=== PATIENT | male | born 1985 | race Caucasian/White ===

== ENCOUNTER 2016-07-17 08:40 | Emergency (ER) | payer OTHER ==
[2016-07-17] MEDS ORDERED: PERCOCET 5MG/325MG TAB As Ordered ONE (08:55)
[2016-07-17] MEDS ORDERED: CEPHALEXIN 250 MG CAP As Ordered ONE (09:44)
--- NOTE | 2016-07-17 09:57 | EDDOCDS ---
Nurse's Notes [facility] Name: Malcom Barclay Age: 31 yrs Sex: Male : 1985 Arrival Date: 07/17/2016 Time: 08:40 Bed I2 / M2 Private MD: Diagnosis: Displaced fracture of distal phalanx of right ring finger-open tuft fx. Presentation: 07/17 08:46 Presenting complaint: Patient states: Crushing injury to tip of right ring finger after dwg dropping 85lb weight on it. Adult Sepsis Screening: The patient does not have new or worsening altered mentation. Patient's respiratory rate is less than 22. Systolic blood pressure is greater than 100. Patient has a qSOFA score of 0- Negative Sepsis Screen. Suicide/Homicide risk assessment- the patient denies having any suicidal and/or homicidal ideations and does not present with any other emotional, behavioral or mental health complaints. 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 Transition of care: patient was not received from another setting of care. 08:46 Acuity: ARJUN Level 4 dwg 08:46 Method Of Arrival: Walkin/Carried/Asstd dwg Triage Assessment: 08:48 General: Appears in no apparent distress. Pain: Pain currently is 6 out of 10 on a pain dwg scale. Pt Declines HIV testing. Historical: - Allergies: no known allergies; - Home Meds: 1. none - PMHx: none; - PSHx: Inguinal hernia repair as a child; - Social history: Smoking status: Patient states was never smoker of tobacco. No barriers to communication noted, The patient speaks fluent Bahamian. - Family history: Not pertinent. - : The pt / caregiver states he / she is not on anticoagulants. Home medication list is obtained from the patient. - Exposure Risk Screening:: None identified. Screenin:58 Screening information is obtained from the patient. Fall risk: No risks identified. pml Assistance ADL's: requires no assistance with activities of daily living. Abuse/DV Screen: The patient / caregiver reports he/she is: not in a situation that causes fear, pain or injury. Nutritional screening: No deficits noted. Advance Directives: Currently, there is no health care proxy. home support is adequate. Assessment: 08:58 General: Appears in no apparent distress, Behavior is appropriate for age, cooperative. pml Pain: Location: dorsal aspect of distal phalanx of right ring finger Pain currently is 7 out of 10 on a pain scale. Neurological: Level of Consciousness is awake, alert, Oriented to person, place, time. Cardiovascular: Capillary refill < 3 seconds. Respiratory: Airway is patent Respiratory effort is even, unlabored. Derm: Skin is pink, warm & dry. Musculoskeletal: Circulation, motion, and sensation intact Capillary refill < 3 seconds Swelling present in dorsal aspect of distal phalanx of right ring finger. 09:55 General: Appears in no apparent distress, Behavior is appropriate for age, cooperative. pml Pain: Location: dorsal aspect of distal phalanx of right ring finger Pain currently is 5 out of 10 on a pain scale. Neurological: Level of Consciousness is awake, alert, Oriented to person, place, time. Cardiovascular: Capillary refill < 3 seconds. Respiratory: Airway is patent Respiratory effort is even, unlabored. Derm: Skin is pink, warm & dry. Musculoskeletal: Circulation, motion, and sensation intact Capillary refill < 3 seconds. Injury Description: Abrasion sustained to dorsal aspect of distal phalanx of right ring finger. Vital Signs: 08:48 BP 112 / 63; Pulse 70; Resp 16; Temp 97.0(O); Pulse Ox 97% on R/A; Weight 104.33 kg; g Height 72 in. (182.88 cm); Pain 6/10; 09:47 BP 122 / 75; Pulse 72; Resp 16; Temp 98.1; Pulse Ox 96% on R/A; Pain 6/10; nb2 09:55 Pain 5/10; pml 08:48 Body Mass Index 31.19 (104.33 kg, 182.88 cm) [facility] Vitals: 08:48 Log In Time: July 17, 2016 at 08:37. [facility] ED Course: 08:41 Patient visited by Todd Multani Reg. lg 08:41 Patient moved to Waiting lg 08:48 Triage Initiated [facility] 08:50 Patient moved to Triage 1 [facility] 08:51 Geovany Mendoza PA-C [facility] cc10 08:51 Abdiaziz Sherman MD is Attending Physician. cc10 08:51 Patient visited by Geovany Mendoza PA-C. cc10 08:51 Patient visited by Geovany Mendoza PA-C. cc10 08:53 Patient moved to I2 / M2 cc10 08:58 The patient / caregiver is instructed regarding the plan of care and ED course. Patient pml has correct armband on for positive identification. Bed in low position. Call light in reach. 08:58 No IV's were initiated during this patient's visit. pml 08:59 Patient visited by Ericka Flores RN. pml 09:07 [facility] Payment Agreement was scanned into [employer] and attached to record. mm15 09:38 Patient visited by Maura Jose. nb2 09:44 [facility]. cc10 09:48 Patient visited by Maura Jose. nb2 09:52 Patient visited by Ericka Flores RN. pml 09:52 Wound care to abrasion, located on dorsal aspect of distal phalanx of right ring finger pml was cleaned with soap and water, dressed with 4X4s, Kerlix, Patient tolerated well. 09:55 No procedures done that require assistance. pml Administered Medications: 08:58 Drug: oxyCODONE-acetaminophen 1 tabs [oxycodone-acetaminophen 5 mg-325 mg tablet (1 pml tabs)] Route: PO; 09:55 Follow up: Pain 5/10 Adult; Response: Confirmed pt not driving.; Pain is decreased pml 09:52 Drug: Cephalexin 500 mg [cephalexin 250 mg capsule (2 caps)] Route: PO; pml Order Results: There are currently no results for this order. Outcome: 09:44 Discharge ordered by Provider. cc10 09:55 Discharge Assessment: Patient awake, alert and oriented x 3. No cognitive and/or pml functional deficits noted. Patient verbalized understanding of disposition instructions. patient administered narcotics - yes. Pt provided with safe discharge. The following High Risk Discharge criteria are identified: None. Discharged to home ambulatory, with friend. Condition: good Condition: stable. Discharge instructions given to patient, Instructed on discharge instructions, follow up and referral plans. medication usage, wound care, Demonstrated understanding of instructions, medications, Pt was receptive of discharge instructions/ teaching. Prescriptions given X 2. No special radiology studies were completed. Property sent home with patient. 09:56 Patient left the ED. pml Signatures: Nura Holliday RN RN Todd Welsh, Reg Reg lg Ericka FloresRN RN pml Guillermo Weaver mm15 Geovany Mendoza, PA-C PA-C cc10 Maura Jose nb2 MTDD
--- NOTE | 2016-07-17 09:57 | EDDOCDS ---
Physician Documentation [facility] Name: Malcom Barclay Age: 31 yrs Sex: Male : 1985 Arrival Date: 07/17/2016 Time: 08:40 Bed I2 / M2 Private MD: Disposition: 07/17/16 09:44 Discharged to Home/Self Care. Impression: Displaced fracture of distal phalanx of right ring finger - open tuft fx.. - Condition is Stable. - Discharge Instructions: Crush Injury, Fingers or Toes. - Prescriptions for Keflex 500 mg Oral Capsule - take 1 capsule by ORAL route every 12 hours for 7 days; 14 capsule. Hydrocodone- Acetaminophen 5-325 mg Oral Tablet - take 1 tablet by ORAL route every 6 hours As needed MDD: 4 tabs; 16 tablet. - Medication Reconciliation form. - Follow up: Ganesh Reyna [facility]; When: 2 - 3 days; Reason: Wound/Symptom Recheck, Recheck today's complaints, Worsening of conditions, Continuance of care, referral to the ortho. MD. - Problem is new. - Symptoms have improved. Historical: - Allergies: no known allergies; - Home Meds: 1. none - PMHx: none; - PSHx: Inguinal hernia repair as a child; - Social history: Smoking status: Patient states was never smoker of tobacco. No barriers to communication noted, The patient speaks fluent Japanese. - Family history: Not pertinent. - : The pt / caregiver states he / she is not on anticoagulants. Home medication list is obtained from the patient. - Exposure Risk Screening:: None identified. Vital Signs: 07/17 08:48 BP 112 / 63; Pulse 70; Resp 16; Temp 97.0(O); Pulse Ox 97% on R/A; Weight 104.33 kg / dwg 230.01 lbs; Height 72 in. (182.88 cm); Pain 6/10; 09:47 BP 122 / 75; Pulse 72; Resp 16; Temp 98.1; Pulse Ox 96% on R/A; Pain 6/10; nb2 09:55 Pain 5/10; pml 08:48 Body Mass Index 31.19 (104.33 kg, 182.88 cm) dwg MDM: 08:53 oxyCODONE-acetaminophen 5 mg-325 mg 1 tabs PO once ordered. cc10 08:54 Fingers: ring Ordered. EDMS 09:01 Financial registration complete. mm15 09:07 [facility] Payment Agreement was scanned into [employer] and attached to record. mm15 09:43 Wound Care ordered. cc10 09:43 Splint ordered. cc10 09:43 Cephalexin 500 mg PO once ordered. cc10 Administered Medications: 08:58 Drug: oxyCODONE-acetaminophen 1 tabs [oxycodone-acetaminophen 5 mg-325 mg tablet (1 pml tabs)] Route: PO; 09:55 Follow up: Pain 09/30 Adult; Response: Confirmed pt not driving.; Pain is decreased pml 09:52 Drug: Cephalexin 500 mg [cephalexin 250 mg capsule (2 caps)] Route: PO; pml Signatures: Dispatcher [employer] EDNura Gil RN RN dwg Quay, Paulina, RN RN pml Guillermo Weaver mm15 Geovany Mendoza PA-C PABarbi cc10 The chart was reviewed and I authenticate all verbal orders and agree with the evaluation and treatment provided.Attachments: 09:07 [facility] Payment Agreement mm15 MTDD
--- NOTE | 2016-07-17 10:03 | REP ---
RIGHT FOURTH FINGER SERIES: 07/17/2016. Clinical history: Trauma. No prior study. Findings: There is a fracture through the distal tuft of the distal phalanx with soft tissue laceration at the end of the nail bed distally in that finger. I do not see radiopaque foreign body. There are no other fractures. The IP joints of the phalanges and MCP joint intact. Impression: 1. Avulsion fracture distal tuft distal phalanx of the fourth digit without other phalangeal fracture or joint abnormality. No foreign body. Signed by Lenin Kulkarni MD 07/17/2016 04:40 P
--- NOTE | 2016-07-19 10:57 | EDDOCDS ---
Nurse's Notes [facility] Name: Malcom Barclay Age: 31 yrs Sex: Male : 1985 Arrival Date: 07/17/2016 Time: 08:40 Bed I2 / M2 Private MD: Diagnosis: Displaced fracture of distal phalanx of right ring finger-open tuft fx. Presentation: 07/17 08:46 Presenting complaint: Patient states: Crushing injury to tip of right ring finger after dwg dropping 85lb weight on it. Adult Sepsis Screening: The patient does not have new or worsening altered mentation. Patient's respiratory rate is less than 22. Systolic blood pressure is greater than 100. Patient has a qSOFA score of 0- Negative Sepsis Screen. Suicide/Homicide risk assessment- the patient denies having any suicidal and/or homicidal ideations and does not present with any other emotional, behavioral or mental health complaints. 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 Transition of care: patient was not received from another setting of care. 08:46 Acuity: ARJUN Level 4 dwg 08:46 Method Of Arrival: Walkin/Carried/Asstd dwg Triage Assessment: 08:48 General: Appears in no apparent distress. Pain: Pain currently is 6 out of 10 on a pain dwg scale. Pt Declines HIV testing. Historical: - Allergies: no known allergies; - Home Meds: 1. none - PMHx: none; - PSHx: Inguinal hernia repair as a child; - Social history: Smoking status: Patient states was never smoker of tobacco. No barriers to communication noted, The patient speaks fluent Moldovan. - Family history: Not pertinent. - : The pt / caregiver states he / she is not on anticoagulants. Home medication list is obtained from the patient. - Exposure Risk Screening:: None identified. Screenin:58 Screening information is obtained from the patient. Fall risk: No risks identified. pml Assistance ADL's: requires no assistance with activities of daily living. Abuse/DV Screen: The patient / caregiver reports he/she is: not in a situation that causes fear, pain or injury. Nutritional screening: No deficits noted. Advance Directives: Currently, there is no health care proxy. home support is adequate. Assessment: 08:58 General: Appears in no apparent distress, Behavior is appropriate for age, cooperative. pml Pain: Location: dorsal aspect of distal phalanx of right ring finger Pain currently is 7 out of 10 on a pain scale. Neurological: Level of Consciousness is awake, alert, Oriented to person, place, time. Cardiovascular: Capillary refill < 3 seconds. Respiratory: Airway is patent Respiratory effort is even, unlabored. Derm: Skin is pink, warm & dry. Musculoskeletal: Circulation, motion, and sensation intact Capillary refill < 3 seconds Swelling present in dorsal aspect of distal phalanx of right ring finger. 09:55 General: Appears in no apparent distress, Behavior is appropriate for age, cooperative. pml Pain: Location: dorsal aspect of distal phalanx of right ring finger Pain currently is 5 out of 10 on a pain scale. Neurological: Level of Consciousness is awake, alert, Oriented to person, place, time. Cardiovascular: Capillary refill < 3 seconds. Respiratory: Airway is patent Respiratory effort is even, unlabored. Derm: Skin is pink, warm & dry. Musculoskeletal: Circulation, motion, and sensation intact Capillary refill < 3 seconds. Injury Description: Abrasion sustained to dorsal aspect of distal phalanx of right ring finger. Vital Signs: 08:48 BP 112 / 63; Pulse 70; Resp 16; Temp 97.0(O); Pulse Ox 97% on R/A; Weight 104.33 kg; g Height 72 in. (182.88 cm); Pain 6/10; 09:47 BP 122 / 75; Pulse 72; Resp 16; Temp 98.1; Pulse Ox 96% on R/A; Pain 6/10; nb2 09:55 Pain 5/10; pml 08:48 Body Mass Index 31.19 (104.33 kg, 182.88 cm) [facility] Vitals: 08:48 Log In Time: July 17, 2016 at 08:37. [facility] ED Course: 08:41 Patient visited by Todd Multani Reg. lg 08:41 Patient moved to Waiting lg 08:48 Triage Initiated [facility] 08:50 Patient moved to Triage 1 [facility] 08:51 Geov[facility]endoza [facility]-C [facility] cc[facility] 08:51 Abdiaziz Sherman MD is Attending Physician. cc10 08:51 Patient visited by Geovany Mendoza PA-C. cc10 08:51 Patient visited by Geovany Mendoza PA-C. cc10 08:53 Patient moved to I2 / M2 cc10 08:58 The patient / caregiver is instructed regarding the plan of care and ED course. Patient pml has correct armband on for positive identification. Bed in low position. Call light in reach. 08:58 No IV's were initiated during this patient's visit. pml 08:59 Patient visited by Ericka Flores,ASIM. pml 09:07 [facility] Payment Agreement was scanned into [employer] and attached to record. mm15 09:38 Patient visited by Maura Jose. nb2 09:44 [facility]. cc10 09:48 Patient visited by Maura Jose. nb2 09:52 Patient visited by Ericka Flores,ASIM. pml 09:52 Wound care to abrasion, located on dorsal aspect of distal phalanx of right ring finger pml was cleaned with soap and water, dressed with 4X4s, Kerlix, Patient tolerated well. 09:55 No procedures done that require assistance. pml 10:25 Fingers: ring Returned. EDMS 18:24 T-Sheet-- Draft Copy was scanned into [employer] and attached to record. klr Administered Medications: 08:58 Drug: oxyCODONE-acetaminophen 1 tabs [oxycodone-acetaminophen 5 mg-325 mg tablet (1 pml tabs)] Route: PO; 09:55 Follow up: Pain 5/10 Adult; Response: Confirmed pt not driving.; Pain is decreased pml 09:52 Drug: Cephalexin 500 mg [cephalexin 250 mg capsule (2 caps)] Route: PO; pml Order Results: Radiology Order: Fingers: ring Test: Fingers: ring REASON FOR EXAMINATION: Trauma; RIGHT FOURTH FINGER SERIES: 07/17/2016.; ; Clinical history: Trauma.; ; No prior study.; ; Findings: There is a fracture through the distal tuft of the distal phalanx with; soft tissue laceration at the end of the nail bed distally in that finger. I do; not see radiopaque foreign body. There are no other fractures. The IP joints of; the phalanges and MCP joint intact.; ; Impression:; ; 1. Avulsion fracture distal tuft distal phalanx of the fourth digit without; other phalangeal fracture or joint abnormality. No foreign body.; ; ; ; ; Signed by; Lenin Kulkarni MD 07/17/2016 04:40 P; Outcome: 09:44 Discharge ordered by Provider. cc10 09:55 Discharge Assessment: Patient awake, alert and oriented x 3. No cognitive and/or pml functional deficits noted. Patient verbalized understanding of disposition instructions. patient administered narcotics - yes. Pt provided with safe discharge. The following High Risk Discharge criteria are identified: None. Discharged to home ambulatory, with friend. Condition: good Condition: stable. Discharge instructions given to patient, Instructed on discharge instructions, follow up and referral plans. medication usage, wound care, Demonstrated understanding of instructions, medications, Pt was receptive of discharge instructions/ teaching. Prescriptions given X 2. No special radiology studies were completed. Property sent home with patient. 09:56 Patient left the ED. pml Signatures: Dispatcher [employer] EDNura Gil, Todd Love RN, [place] Reg lg Ericka Flores RN RN pml McGrath, Marlynn mm15 Geovany Mendoza PA-C PA-C cc10 Jessica Meyer Nicole nb2 Chart Complete NICOLE
--- NOTE | 2016-07-19 10:57 | EDDOCDS ---
Physician Documentation [facility] Name: Malcom Barclay Age: 31 yrs Sex: Male : 1985 Arrival Date: 07/17/2016 Time: 08:40 Bed I2 / M2 Private MD: Disposition: 07/17/16 09:44 Discharged to Home/Self Care. Impression: Displaced fracture of distal phalanx of right ring finger - open tuft fx.. - Condition is Stable. - Discharge Instructions: Crush Injury, Fingers or Toes. - Prescriptions for Keflex 500 mg Oral Capsule - take 1 capsule by ORAL route every 12 hours for 7 days; 14 capsule. Hydrocodone- Acetaminophen 5-325 mg Oral Tablet - take 1 tablet by ORAL route every 6 hours As needed MDD: 4 tabs; 16 tablet. - Medication Reconciliation form. - Follow up: [facility] Reyna [facility]; When: 2 - 3 days; Reason: Wound/Symptom Recheck, Recheck today's complaints, Worsening of conditions, Continuance of care, referral to the ortho. MD. - Problem is new. - Symptoms have improved. Historical: - Allergies: no known allergies; - Home Meds: 1. none - PMHx: none; - PSHx: Inguinal hernia repair as a child; - Social history: Smoking status: Patient states was never smoker of tobacco. No barriers to communication noted, The patient speaks fluent Montenegrin. - Family history: Not pertinent. - : The pt / caregiver states he / she is not on anticoagulants. Home medication list is obtained from the patient. - Exposure Risk Screening:: None identified. Vital Signs: 07/17 08:48 BP 112 / 63; Pulse 70; Resp 16; Temp 97.0(O); Pulse Ox 97% on R/A; Weight 104.33 kg / dwg 230.01 lbs; Height 72 in. (182.88 cm); Pain 6/10; 09:47 BP 122 / 75; Pulse 72; Resp 16; Temp 98.1; Pulse Ox 96% on R/A; Pain 6/10; nb2 09:55 Pain 5/10; pml 08:48 Body Mass Index 31.19 (104.33 kg, 182.88 cm) dwg MDM: 08:53 oxyCODONE-acetaminophen 5 mg-325 mg 1 tabs PO once ordered. cc10 08:54 Fingers: ring Ordered. EDMS 09:01 Financial registration complete. mm15 09:07 [facility] Payment Agreement was scanned into [employer] and attached to record. mm15 09:43 Wound Care ordered. cc10 09:43 Splint ordered. cc10 09:43 Cephalexin 500 mg PO once ordered. cc10 18:24 T-Sheet-- Draft Copy was scanned into [employer] and attached to record. klr Administered Medications: 08:58 Drug: oxyCODONE-acetaminophen 1 tabs [oxycodone-acetaminophen 5 mg-325 mg tablet (1 pml tabs)] Route: PO; 09:55 Follow up: Pain 09/30 Adult; Response: Confirmed pt not driving.; Pain is decreased pml 09:52 Drug: Cephalexin 500 mg [cephalexin 250 mg capsule (2 caps)] Route: PO; pml Signatures: Dispatcher [employer] EDNura Gil RN RN Ericka Caban RN RN pml Guillermo Weaver mm15 Geovany Mendoza PA-C PABarbi cc10 Jessica Meyer klr The chart was reviewed and I authenticate all verbal orders and agree with the evaluation and treatment provided.Attachments: :07 [facility] Payment Agreement mm15 18:24 T-Sheet-- Draft Copy klr Chart Complete MTDD
--- NOTE | 2016-07-19 10:57 | EDDOCDS ---
Physician Documentation [facility] Name: Malcom Barclay Age: 31 yrs Sex: Male : 1985 Arrival Date: 07/17/2016 Time: 08:40 Bed I2 / M2 Private MD: Disposition: 07/17/16 09:44 Discharged to Home/Self Care. Impression: Displaced fracture of distal phalanx of right ring finger - open tuft fx.. - Condition is Stable. - Discharge Instructions: Crush Injury, Fingers or Toes. - Prescriptions for Keflex 500 mg Oral Capsule - take 1 capsule by ORAL route every 12 hours for 7 days; 14 capsule. Hydrocodone- Acetaminophen 5-325 mg Oral Tablet - take 1 tablet by ORAL route every 6 hours As needed MDD: 4 tabs; 16 tablet. - Medication Reconciliation form. - Follow up: Ganesh Reyna [facility]; When: 2 - 3 days; Reason: Wound/Symptom Recheck, Recheck today's complaints, Worsening of conditions, Continuance of care, referral to the ortho. MD. - Problem is new. - Symptoms have improved. Historical: - Allergies: no known allergies; - Home Meds: 1. none - PMHx: none; - PSHx: Inguinal hernia repair as a child; - Social history: Smoking status: Patient states was never smoker of tobacco. No barriers to communication noted, The patient speaks fluent Barbadian. - Family history: Not pertinent. - : The pt / caregiver states he / she is not on anticoagulants. Home medication list is obtained from the patient. - Exposure Risk Screening:: None identified. Vital Signs: 07/17 08:48 BP 112 / 63; Pulse 70; Resp 16; Temp 97.0(O); Pulse Ox 97% on R/A; Weight 104.33 kg / dwg 230.01 lbs; Height 72 in. (182.88 cm); Pain 6/10; 09:47 BP 122 / 75; Pulse 72; Resp 16; Temp 98.1; Pulse Ox 96% on R/A; Pain 6/10; nb2 09:55 Pain 5/10; pml 08:48 Body Mass Index 31.19 (104.33 kg, 182.88 cm) dwg MDM: 08:53 oxyCODONE-acetaminophen 5 mg-325 mg 1 tabs PO once ordered. cc10 08:54 Fingers: ring Ordered. EDMS 09:01 Financial registration complete. mm15 09:07 [facility] Payment Agreement was scanned into [employer] and attached to record. mm15 09:43 Wound Care ordered. cc10 09:43 Splint ordered. cc10 09:43 Cephalexin 500 mg PO once ordered. cc10 18:24 T-Sheet-- Draft Copy was scanned into [employer] and attached to record. klr Administered Medications: 08:58 Drug: oxyCODONE-acetaminophen 1 tabs [oxycodone-acetaminophen 5 mg-325 mg tablet (1 pml tabs)] Route: PO; 09:55 Follow up: Pain 09/30 Adult; Response: Confirmed pt not driving.; Pain is decreased pml 09:52 Drug: Cephalexin 500 mg [cephalexin 250 mg capsule (2 caps)] Route: PO; pml Signatures: Dispatcher [employer] EDNura Gil RN RN Ericka Caban RN RN pml Guillermo Weaver mm15 Geovany Mendoza PA-C PABarbi cc10 Jessica Meyer klr The chart was reviewed and I authenticate all verbal orders and agree with the evaluation and treatment provided.Attachments: :07 [facility] Payment Agreement mm15 18:24 T-Sheet-- Draft Copy klr Chart Complete MTDD
== END 2016-07-17 09:56 | disposition home or self-care (01) ==
LOC: M ED 08:40
DX: S62.634B Displaced fracture of distal phalanx of right ring finger, initial encounter for open fracture (principal); W23.0XXA Caught, crushed, jammed, or pinched between moving objects, initial encounter; Y92.139 Unspecified place military base as the place of occurrence of the external cause; Y93.89 Activity, other specified; Y99.1 Military activity; K46.9 Unspecified abdominal hernia without obstruction or gangrene